=== PATIENT | male | born 1960 | race African-American/Black ===

== ENCOUNTER 2018-11-24 08:58 | Day surgery (SDC) | payer OTHER ==
[2018-11-23 12:52] VITALS: BMI 25.3
[2018-11-24 10:03] VITALS: TEMP 97.2
[2018-11-24 11:02] VITALS: BP 128/79; PULSE 77
--- NOTE | 2018-11-29 13:07 | PATH ---
Surgical Pathology Report Patient Name: NENA FIGUEROA [facility]. Rec. #: [id number] /Age/Gender: 1960 (Age: 58) / M Account: [id number] Location: [facility]-ENDOSCOPY Taken: 11/24/2018 Received: 11/24/2018 Reported: 11/25/2018 Physicians: Romeo Rizo D.O. Specimen(s) Received A: RIGHT COLON B: SIGMOID COLON C: RECTUM Clinical History Screening for malignant neoplasms Postop diagnosis colon polyps, hemorrhoids, diverticulosis Final Diagnosis A. COLON, RIGHT, POLYP, BIOPSY: TUBULAR ADENOMA. B. SIGMOID COLON, BIOPSY: COLONIC MUCOSA WITH SUPERFICIAL HYPERPLASTIC FEATURES. C. RECTUM, BIOPSY: COLONIC MUCOSA WITH FOCAL SUPERFICIAL HYPERPLASTIC FEATURES AND MILD EXTRAVASATION OF RED BLOOD CELLS WITHIN LAMINA PROPRIA. Electronically Signed Kitty Jung M.D. Gross Description A. Received in formalin, labeled "right colon polyp" is a alcantara, irregular portion of soft tissue measuring 0.3 cm. in greatest dimension. The specimens are submitted in toto in one cassette. B. Received in formalin, labeled "sigmoid colon" is a alcantara, irregular portion of soft tissue measuring 0.4 cm. in greatest dimension. The specimens are submitted in toto in one cassette. C. Received in formalin, labeled "rectum" is a alcantara, irregular portions of soft tissue measuring 0.3 cm. in greatest dimension. The specimens are submitted in toto in one cassette. NATE/11/24/2018 anthony/11/24/2018
== END 2018-11-24 10:44 | disposition home or self-care (01) ==
LOC: JASU-ENDO 08:58
PROVIDERS: ATTEND Internal Medicine Gastroenterology
PROC: 0DBF8ZX Excision of Right Large Intestine, Via Natural or Artificial Opening Endoscopic, Diagnostic (ICD-10-PCS; principal; 2018-11-24 09:45)
DX: Z12.11 Encounter for screening for malignant neoplasm of colon (principal); D12.6 Benign neoplasm of colon, unspecified; K57.30 Diverticulosis of large intestine without perforation or abscess without bleeding; K64.8 Other hemorrhoids
CPT/HCPCS: 88305-TC

== ENCOUNTER 2024-01-25 04:34 | Day surgery (SDC) | payer OTHER ==
[2024-01-17 16:03] VITALS: BMI 25.9
[2024-01-25 08:32] VITALS: TEMP 97.5
[2024-01-25 09:03] VITALS: BP 124/73; PULSE 65; RESP 14
== END 2024-01-25 09:04 | disposition home or self-care (01) ==
LOC: JASU-ENDO 04:34
PROVIDERS: ATTEND Internal Medicine Gastroenterology
PROC: 0DBL8ZX Excision of Transverse Colon, Via Natural or Artificial Opening Endoscopic, Diagnostic (ICD-10-PCS; 2024-01-25)
PROC: 0DBM8ZX Excision of Descending Colon, Via Natural or Artificial Opening Endoscopic, Diagnostic (ICD-10-PCS; principal; 2024-01-25 08:00)
DX: Z12.11 Encounter for screening for malignant neoplasm of colon (principal); D12.3 Benign neoplasm of transverse colon; D12.4 Benign neoplasm of descending colon; K64.8 Other hemorrhoids; Z86.010 Personal history of colon polyps
CPT/HCPCS: 88305-TC

== ENCOUNTER 2024-02-10 06:31 | Day surgery (SDC) | payer OTHER ==
[2024-02-07 11:52] VITALS: BMI 25.9
[2024-02-10 09:14] VITALS: TEMP 97.6
[2024-02-10 09:43] VITALS: RESP 18
[2024-02-10 09:45] VITALS: BP 130/83; PULSE 80
== END 2024-02-10 09:46 | disposition home or self-care (01) ==
LOC: JASU-ENDO 06:31
PROVIDERS: ATTEND Internal Medicine Gastroenterology
PROC: 0DB78ZX Excision of Stomach, Pylorus, Via Natural or Artificial Opening Endoscopic, Diagnostic (ICD-10-PCS; 2024-02-10)
PROC: 0DB68ZX Excision of Stomach, Via Natural or Artificial Opening Endoscopic, Diagnostic (ICD-10-PCS; 2024-02-10)
PROC: 0DB48ZX Excision of Esophagogastric Junction, Via Natural or Artificial Opening Endoscopic, Diagnostic (ICD-10-PCS; principal; 2024-02-10 08:45)
DX: K21.00 Gastro-esophageal reflux disease with esophagitis, without bleeding (principal); K44.9 Diaphragmatic hernia without obstruction or gangrene; K29.50 Unspecified chronic gastritis without bleeding; K22.89 Other specified disease of esophagus
CPT/HCPCS: 88305-TC; 88342-TC